=== PATIENT | female | born 1970 | race American Indian/Alaskan Native ===

== ENCOUNTER 2017-09-12 12:00 | Emergency (ER) | payer SELFPAY ==
[2017-09-12 12:47] VITALS: BP 117/73
[2017-09-12] MEDS ORDERED: TETRACAINE 0.5% OU ONE (13:44)
[2017-09-12] MEDS ORDERED: BSS 1 DROPS, TETRACAINE 0.5% 1 DROPS, FUL-GLO 0.6 MG OS ONE (13:45)
--- NOTE | 2017-09-12 14:23 | Emergency Department Report ---
ED Eye Problem HPI - General Chief complaint: Eye Problems Stated complaint: EYE PAIN Time Seen by Provider: 09/12/17 13:28 Source: patient Mode of arrival: Ambulatory Limitations: No Limitations - History of Present Illness Initial comments: 47-year-old female past medical history none presents with complaint of left eye irritation and discomfort with some associated blurry vision since last night. Patient states she has had some left conjunctival injection for 2 weeks but it got progressively worse overnight. Patient states that she ate some fish caviar and was concerned she may be having some form of allergic reaction. Patient denies any facial swelling fever chills nausea vomiting abdominal pain chest pain shortness of breath lip swelling. Patient has had some watery discharge from left eye. States that she first noticed symptoms before going to sleep last night. Woke up with left eye pain and blurry vision. Patient states that she saw her neighbor this morning and informed her that her left eye looked redder than usual. Patient adamantly denies any trauma or foreign body sensation left eye. Patient states she does use glasses or contacts but has not use contacts. MD chief complaint: eye pain, eye redness Onset/Timin -: week(s) Onset Description: sudden Location: left eye If Injury: none Eye Symptoms: redness, discharge, blurry vision Severity: moderate Treatments Prior to Arrival: none - Related Data Allergies Allergy/AdvReac Type Severity Reaction Status Date / Time No Known Allergies Allergy Verified 09/12/17 12:47 ED Review of Systems ROS: Stated complaint: EYE PAIN Other details as noted in HPI Constitutional: denies: chills, fever Eyes: eye pain, vision change. denies: eye discharge ENT: denies: ear pain, throat pain Respiratory: denies: cough, shortness of breath, wheezing Cardiovascular: denies: chest pain, palpitations Endocrine: no symptoms reported Gastrointestinal: denies: abdominal pain, nausea, diarrhea Genitourinary: denies: urgency, dysuria, discharge Musculoskeletal: denies: back pain, joint swelling, arthralgia Skin: denies: rash, lesions Neurological: denies: headache, weakness, paresthesias Psychiatric: denies: anxiety, depression Hematological/Lymphatic: denies: easy bleeding, easy bruising ED Past Medical Hx - Past Medical History Previous Medical History?: No - Surgical History Past Surgical History?: No - Social History Smoking Status: Current Every Day Smoker Substance Use Type: Alcohol ED Physical Exam - General Limitations: No Limitations General appearance: alert, in no apparent distress - Head Head exam: Present: atraumatic, normocephalic - Eye Eye exam: Present: normal appearance, PERRL, EOMI - Expanded Eye Exam Expanded Eyelids: Normal Inspection: Right Pupils: Regular, Round: Right (LEFT PUPIL AMOPPHOUS/ABNORMAL APPEARANCE) Sclera/Conjunctival: Injection: Left (left conjunctival redness) Visual acuity (R) = 20/: 30 Visual acuity (L) = 20/: 40 With correction: No IOP (L) in mmH (check 3 times, avergae of 18) IOP measured with: Tonopen - ENT ENT exam: Present: mucous membranes moist - Neck Neck exam: Present: normal inspection - Respiratory Respiratory exam: Present: normal lung sounds bilaterally. Absent: respiratory distress - Cardiovascular Cardiovascular Exam: Present: regular rate, normal rhythm. Absent: systolic murmur, diastolic murmur, rubs, gallop - GI/Abdominal GI/Abdominal exam: Present: soft, normal bowel sounds - Extremities Exam Extremities exam: Present: normal inspection - Back Exam Back exam: Present: normal inspection - Neurological Exam Neurological exam: Present: alert, oriented X3 - Psychiatric Psychiatric exam: Present: normal affect, normal mood - Skin Skin exam: Present: warm, dry, intact, normal color. Absent: rash ED Course Vital Signs 09/12/17 12:45 Temperature 98.2 F Pulse Rate 95 H Respiratory 16 Rate Blood Pressure 117/73 O2 Sat by Pulse 97 Oximetry ED Medical Decision Making - Medical Decision Making A/P: Acute iritis left eye 1-no corneal abrasion on fluorescein exam, intraocular pressure approximately 18 left eye, I triple checked intraocular pressure left eye, average of 18 2-case discussed with Dr. Fox who also examined patient. As per Dr. Fox patient likely has a case of acute iritis. I called the office of Dr. Blount brick dropper and arranged for immediate consultation appointment. As per loan secretary Miss Ramachandran I can discharge the patient and Dr. Brantley see her immediately today. I advised patient of clinical plan and she agreed to immediately go over to Dr. Connors office for further evaluation and management of her acute iritis. I informed Dr. Fox of this plan, Dr. Fox approves Critical care attestation.: If time is entered above; I have spent that time in minutes in the direct care of this critically ill patient, excluding procedure time. ED Disposition Clinical Impression: Acute iritis of left eye Disposition: DC- TO HOME OR SELFCARE Is pt being admited?: No Does the pt Need Aspirin: No Condition: Stable Instructions: Iritis (ED) Referrals: PRIMARY CAREMD [Primary Care Provider] - 3-5 Days MAYDA BRANTLEY MD [Staff Physician] - 3-5 Days Forms: Accompanied Note, Work/School Release Form(ED) Time of Disposition: 14:23
[2017-09-12] MEDS ORDERED: FUL-GLO OP ONE (14:44)
== END 2017-09-12 14:33 | disposition home or self-care (01) ==
LOC: ED 12:00
DX: H20.00 Unspecified acute and subacute iridocyclitis (principal); F17.200 Nicotine dependence, unspecified, uncomplicated
CPT/HCPCS: 99282